=== PATIENT | female | born 1950 | race Caucasian/White ===

== ENCOUNTER → 2020-07-30 12:38 | Outpatient (CLI) | payer OTHER, SELFPAY ==
--- NOTE | 2020-07-30 12:43 | CT_ITS ---
STUDY: CT LEFT LOWER EXTREMITY REASON FOR EXAM: Female, 70 years old. Varus deformity, not elsewhere classified, left knee RADIATION DOSAGE (If Supplied By Facility): CTDIvol = ( 18.07 ) mGy, DLP = ( 993.98 ) mGycm. Individualized dose optimization techniques were used for this CT.? TECHNIQUE: Axial multidetector CT scan of the left lower extremity. Coronal and sagittal reformatted images. COMPARISON: None. FINDINGS: Left hip: Mild/moderate osteoarthritis predominating superiolaterally. Moderate pubic symphysis arthrosis. Mild sacroiliac joint arthrosis. Spurring at the greater trochanter. Calcified fibroid uterus. No acute fracture, dislocation or cortical destruction. Left ankle: Mild tibiotalar joint arthrosis with vacuum phenomenon. Plantar spur. Ankle mortise well aligned. Achilles enthesophyte. No acute fracture, dislocation or cortical destruction. Left knee: Moderate medial compartment osteoarthritis. Lateral compartment preserved. Moderate patellofemoral osteoarthritis. Normal proximal tibiofibular joint. Small volume joint effusion. Small popliteal cyst. Mild soft tissue swelling. No acute fracture, dislocation or cortical destruction. CT/Extremity Lower without Contra IMPRESSION: Moderate left knee osteoarthritis Mild left ankle osteoarthritis Mild/moderate left hip osteoarthritis Left knee small volume joint effusion, small popliteal cyst with mild swelling Electronically Signed: Shabbir Mendez DO at 8:12 EDT Tel , Service support ,
== END ==
PROVIDERS: PCP Student in an Organized Health Care Education/Training Program; Referring Provider Specialist; Visit Provider Specialist
DX: M21.162 Varus deformity, not elsewhere classified, left knee (principal)
CPT/HCPCS: 73700

== ENCOUNTER 2020-09-09 03:45 | Emergency (ER) | payer OTHER, SELFPAY ==
[2020-09-09 03:46] VITALS: BP 193/91; PULSE 82; RESP 16; TEMP 36.3; O2SAT 98; BMI 27.2
--- NOTE | 2020-09-09 03:58 | CT_ITS ---
HISTORY: mastoiditis TECHNIQUE: Multiple axial images were obtained of the brain without intravenous contrast. Coronal and sagittal reformats obtained. Bone algorithm axial images obtained. A radiation dose optimization technique was used for this scan. COMPARISON: None FINDINGS: # of images incl. paperwork: [id number] HEMORRHAGE: No evidence of acute intracranial hemorrhage. CEREBRAL PARENCHYMA: --Volume: Unremarkable for age. --White matter: Mild periventricular hypodense chronic small vessel white matter ischemic change. --Mass: No evidence of intracranial mass. --Stroke: Mendoza-white matter differentiation is preserved. VENTRICULAR SYSTEM: No hydrocephalus. MASS EFFECT: No midline shift or focal sulci effacement. Basal cisterns are preserved. SCALP: No large scalp hematoma. CALVARIUM/SKULL BASE: No fracture. PARANASAL SINUSES: Clear. MASTOID AIR CELLS: Clear. ORBITS: Imaged portions are unremarkable. VESSELS: Carotid and vertebral atherosclerosis. ASPECTS acute stroke score: 10 CT/Brain/Head without Contrast IMPRESSION: Mastoid air cells and middle ears are grossly clear. No evidence of mastoiditis. No CT evidence of acute intracranial hemorrhage or injury. Mild senescent changes. Individualized dose optimization techniques were used for this CT. at 0459 Reported and signed by: Rubin Saez MD Electronically Signed: Rubin Saez MD at 4:57 EDT Tel , Service support ,
[2020-09-09 04:04] VITALS: BP 166/80
[2020-09-09] MEDS: Ondansetron 4 MG/2 ML Vial IV (04:08)
[2020-09-09] MEDS: Morphine 4 MG/ML Syringe IV (04:10)
[2020-09-09 04:19] LABS: Absolute Lymphocyte Count 2.68 X10^3/uL (0.83-4.51); Absolute Neutrophil Count 3.6 X10^3/uL (2.0-7.7); Basophil# 0.06 X10^3/uL; Basophil% 0.8 % (0-1); Eosinophil# 0.66 X10^3/uL; Eosinophils% 8.6 % (0-5); Hematocrit 37.7 % (37-47); Hemoglobin 12.5 g/dL (12.0-15.0); Lymphocyte # 2.68 X10^3/ul (0.83-4.51); Lymphocyte % 34.8 % (19-41); Mean Corp Hgb Conc 33.2 g/dL (32-36); Mean Corpuscular Hgb 29.8 pg (27.0-32.0); Mean Corpuscular Volume 89.8 fL (81-99); Monocyte# 0.64 X10^3/uL; Monocyte% 8.3 % (0-10); NRBC Flagged by Analyzer 0 % (0-5); Neutrophil # 3.63 X10^3/uL (2.7-7.7); Platelet Count 245 K/mm3 (150-450); RBC Distribution Width CV 13.1 % (11.6-14.6); RBC Distribution Width SD 43.1 fl (35.1-43.9); White Blood Count 7.7 K/mm3 (4.4-11.0)
[2020-09-09 04:31] LABS: Anion Gap 10 (5-15); BUN 11 mg/dL (7-18); BUN/Creat Ratio 18.5 RATIO (10-20); Calcium,Total 9.1 mg/dL (8.5-10.1); Chloride 104 mmol/L (98-107); Creatinine, Serum 0.59 mg/dL (0.55-1.02); EST Glomerular Filtration Rate 107 mL/min (>60); Est Glom Filt Rate - Afr Amer 129 mL/min (>60); Estimated Creatinine Clearance 38.14 ml/min; Glucose 116 mg/dL (74-106); Sodium Level 140 mmol/L (136-145)
--- NOTE | 2020-09-09 04:52 | EDS_ITS ---
HPI History of Present Illness Chief Complaint: Other, Pain/Inj Detail of Chief Complaint: Pain behind left ear Informant: patient Onset/Context/Timing Onset: Days (6 days) Context: Gradual Onset Current Severity: Severe Maximum Severity: Severe Narrative Narrative: Patient presents secondary to pain to the left ear and posterior to the left ear. Patient states pain has been ongoing for the past 6 days. It was gradual in onset. She was hit the top of the head by a trunk lid in late August, several days before pain onset. She is unsure if this is related. Patient was seen by Dr. West this week. She states that some wax was cleared out of her ear and she was told to use Tylenol for pain. She states in spite of doing this her pain is worsened and she was not able to sleep tonight. She denies fever or chills. She reports her blood sugars have been under good control. Past medical history: Hypertension Diabetes [facility] Medical History (Updated 09/10/20 @ 23:[address] Lynda Patel MD) Diabetes Hypertension Home Medications Red Yeast Rice 1 capsule PO DAILY 06/04/15 [History Last Taken 06/04/15] aspirin 162 mg PO DAILY@0800 06/04/15 [History Last Taken 06/04/15] lisinopril 20 mg PO DAILY 06/04/15 [History Last Taken 06/04/15] metformin 1,000 mg PO BIDCM 06/04/15 [History Last Taken 06/04/15] sitagliptin [Januvia] 100 mg PO DAILY 06/04/15 [History Last Taken 06/04/15] clindamycin HCl 300 mg PO 4X/DAY #80 cap 09/09/20 [Rx Last Taken Unknown] Allergy/AdvReac Type Severity Reaction Status Date / Time No Known Allergies Allergy Verified 09/09/20 03:49 Social History Smoking Status: Never smoker ROS ROS ED Constitutional Constitutional ED: Denies chills or fever(s) Eyes Eyes: Denies change in vision ENT ENT ED: Reports ear pain left; Denies sore throat Cardiovascular Cardiovascular: Denies chest pain Respiratory/Chest Respiratory/Chest: Denies cough or dyspnea Gastrointestinal Gastrointestinal: Denies abdominal pain, diarrhea, nausea or vomiting Genitourinary Genitourinary ED: Denies dysuria Musculoskeletal Musculoskeletal: Denies back pain Integumentary Denies rash Neurologic Neurologic: Denies headache(s) or weakness Psychiatric Psychiatric: Denies anxiety or depression Endocrine Endocrinology: Denies polydipsia or polyuria Allergic/Immunologic Allergic/Immunologic ED: Denies urticaria EXAM Physical Exam Const Vital Signs: 09/09/20 03:46 09/09/20 03:49 09/09/20 04:04 Temperature 97.4 F L Temperature Source Temporal Pulse Rate 82 Respiratory Rate 16 Respiratory Effort Normal Respiratory Pattern Normal Blood Pressure 193/91 H 166/80 H Blood Pressure Mean 125 108 Pulse Ox 98 Oxygen Delivery Method Room Air Positive well nourished and well developed General Appearance ED: well developed HEENT Reports normocephalic, head/scalp atraumatic and TM's clear HEENT Narrative: Tenderness to palpation over the mastoid air cells on the left. No significant erythema or warmth. Tympanic Membrane ED: Yes TM's clear Eyes PERRL and EOMs intact bilaterally Neck supple Chest Wall inspection of chest normal and palpation of chest normal Resp normal respiratory effort and clear to auscultation bilaterally Cardio regular rate and regular rhythm GI normal to inspection, nondistended, normoactive bowel sounds Palpation: soft Back/Spine no CVA tenderness Extremity normal to inspection Neuro oriented x3 and no sensory deficits noted Sensorium / Orientation: alert Motor Exam: strength 5/5 throughout Psych mental status grossly normal Skin no rashes or lesions noted MDM MDM MDM Narrative Medical decision making narrative: Due to concern for mastoiditis labs and imaging studies are obtained. Lab Data Attestation: I reviewed the patient's lab results. Labs: Laboratory Results - last 24 hr 09/09/20 09/09/20 04:10 04:10 WBC 7.7 RBC 4.20 Hgb 12.5 Hct 37.7 MCV 89.8 MCH 29.8 MCHC 33.2 RDW Std Deviation 43.1 RDW Coeff of Colleen 13.1 Plt Count 245 MPV 10.0 Immature Gran % (Auto) 0.500 Neut % (Auto) 47.0 Lymph % (Auto) 34.8 [place] % (Auto) 8.3 Eos % (Auto) 8.6 H Baso % (Auto) 0.8 Absolute Neuts (auto) 3.6 Absolute Lymphs (auto) 2.68 Nucleated RBC % 0 Sodium 140 Potassium 4.0 Chloride 104 Carbon Dioxide 26.0 Anion Gap 10 BUN 11 Creatinine 0.59 Estim Creat Clear Calc 38.14 Est GFR (MDRD) Af Amer 129 Est GFR (MDRD) Non-Af 107 BUN/Creatinine Ratio 18.5 Glucose 116 H Calcium 9.1 Radiography Diagnostic Testing: Radiology Impression Brain CT 09/09/20 03:58 IMPRESSION: Mastoid air cells and middle ears are grossly clear. No evidence of mastoiditis. No CT evidence of acute intracranial hemorrhage or injury. Mild senescent changes. Individualized dose optimization techniques were used for this CT. at 0459 Reported and signed by: Rubin Saez MD Electronically Signed: Rubin Saez MD at 4:57 EDT Tel , Service support , Treatment and Re-Evaluation Comments:: Patient was given morphine and Zofran for pain control. On repeat evaluation she is resting more comfortably. Lab work is unremarkable. CT scan does not reveal evidence of mastoiditis or any other acute findings to explain her pain. Test results are discussed with her. She will be given a prescription for Watrous to help with pain. We discussed pros and cons of starting an antibiotic to prevent mastoiditis as she certainly has significant pain over the mastoid air cells. We will give her a course of clindamycin and patient will follow up with Dr. West this coming week. Discharge Plan Triage Chief Complaint: Other, Pain/Inj ED Provider: Lynda Patel Dx/Rx/DC Orders Clinical Impression: Otalgia of left ear Instructions: ED Earache Without Infection (Adult) Prescriptions: New clindamycin HCl 150 MG capsule 300 mg PO 4X/DAY Qty: 80 RF: 0 No Action lisinopril 20 MG tablet 20 mg PO DAILY RF: 0 metformin 1,000 MG tablet 1,000 mg PO BIDCM RF: 0 aspirin 81 MG tablet,chewable 162 mg PO DAILY@0800 RF: 0 sitagliptin [Januvia] 100 MG tablet 100 mg PO DAILY RF: 0 Red Yeast Rice 1 capsule PO DAILY RF: 0 Primary Care Provider: David Bai Referrals: David Bai DO [Primary Care Provider] - Robert Fernandez MD [STAFF PHYSICIAN] - As soon as possible Disposition Disposition: Home, Self Care Discharge Date/Time: 09/09/20 06:11
[2020-09-09 06:10] VITALS: RESP 16
== END 2020-09-09 06:11 | disposition home or self-care (01) ==
PROVIDERS: Emergency Provider Emergency Medicine; PCP Student in an Organized Health Care Education/Training Program
DX: H92.02 Otalgia, left ear (principal); I10 Essential (primary) hypertension; E11.9 Type 2 diabetes mellitus without complications; Z79.82 Long term (current) use of aspirin; Z79.84 Long term (current) use of oral hypoglycemic drugs
CPT/HCPCS: 70450; 80048; 85025; 96374; 96375; 99283; A4216; J2405

== ENCOUNTER → 2023-10-09 | Outpatient (CLI) | payer MEDICARE, SELFPAY ==
--- NOTE | 2023-10-09 19:00 | CT_ITS ---
EXAM: CT LEFT UPPER EXTREMITY WITHOUT INTRAVENOUS CONTRAST CLINICAL INDICATION: OSETEOARTHRITIS TECHNIQUE: Helically acquired images were obtained of the left upper extremity without intravenous contrast. 2-D reformats were performed by the technologist. This CT exam was performed using one or more of the following dose reduction techniques: automated exposure control, adjustment of the mA and/or kV according to patient size, and/or use of iterative reconstruction technique. COMPARISON: No relevant prior studies available. FINDINGS: BONES/JOINTS: There are degenerative changes in the partially visualized spine. Moderate acromioclavicular joint arthrosis and moderate sternoclavicular joint arthrosis. Ureteral marginal osteophytosis and glenoid osteophytosis with glenohumeral joint space narrowing as well as subcortical cystic change in the glenoid indicating moderate glenohumeral joint arthrosis. Small cystic change in the proximal humeral head at the rotator cuff insertions likely secondary to chronic rotator cuff pathology. No acute fracture. No subluxation. Normal alignment. SOFT TISSUES: Mild atrophy of the supraspinatus muscle. No soft tissue swelling or gas. No radiopaque foreign body. HEART: Coronary artery calcifications are present. CT/Extremity Upper without Contra IMPRESSION: 1. Moderate acromioclavicular joint arthrosis and moderate sternoclavicular joint arthrosis. 2. Moderate glenohumeral joint arthrosis. 3. Mild atrophy of the supraspinatus muscle. Evidence of chronic rotator cuff pathology. Electronically Signed: Alverto Soler DO at 21:48 EDT ,
== END | disposition home or self-care (01) ==
PROVIDERS: PCP Student in an Organized Health Care Education/Training Program; Referring Provider Physician Assistant Surgical; Visit Provider Physician Assistant Surgical
DX: M19.012 Primary osteoarthritis, left shoulder (principal)
CPT/HCPCS: 73200

== ENCOUNTER 2023-12-07 09:00 | Outpatient (CLI) | payer MEDICARE, SELFPAY ==
--- NOTE | 2023-12-08 14:09 | EKG12_ITS ---
Test Reason : PREOP Blood Pressure : / mmHG Vent. Rate : 074 BPM Atrial Rate : 074 BPM P-R Int : 140 ms QRS Dur : 114 ms QT Int : 416 ms P-R-T Axes : 054 -04 141 degrees QTc Int : 461 ms Normal sinus rhythm Incomplete left bundle branch block ST & T wave abnormality, consider lateral ischemia Abnormal ECG Confirmed by BIN SABA, AMNA ([id number]), tape editor PARAM OROSCO ([id number]) on 12/09/2023 10:56:46 AM Referred By: Jhon Orellana Confirmed By:AMNA STEWARD MD
[2023-12-08 15:24] LABS: Absolute Lymphocyte Count 2.61 X10^3/uL (0.83-4.51); Absolute Neutrophil Count 6.3 X10^3/uL (2.0-7.7); Basophil# 0.07 X10^3/uL; Basophil% 0.7 % (0-1); Eosinophil# 0.64 X10^3/uL; Eosinophils% 6.2 % (0-5); Hematocrit 39.8 % (37-47); Lymphocyte # 2.61 X10^3/ul (0.83-4.51); Lymphocyte % 25.2 % (19-41); Mean Corp Hgb Conc 32.7 g/dL (32-36); Mean Corpuscular Hgb 29.4 pg (27.0-32.0); Mean Platelet Vol. 10.3 fl (6.2-12.0); Monocyte# 0.65 X10^3/uL; Monocyte% 6.3 % (0-10); NRBC Flagged by Analyzer 0 % (0-5); Neutrophil # 6.32 X10^3/uL (2.7-7.7); Neutrophil % 61.1 % (47-70); Platelet Count 319 K/mm3 (150-450); RBC Distribution Width CV 13.2 % (11.6-14.6); RBC Distribution Width SD 43.7 fl (35.1-43.9); Red Blood Count 4.42 M/mm3 (4.2-5.4); White Blood Count 10.3 K/mm3 (4.4-11.0)
[2023-12-08 15:53] LABS: Magnesium 2.1 mg/dL (1.6-2.6)
[2023-12-08 16:01] LABS: Albumin, Serum 4.3 g/dL (3.2-5.0); Anion Gap 6 (5-15); BUN 11 mg/dL (7-18); BUN/Creat Ratio 17.4 RATIO (10-20); Calcium,Total 9.7 mg/dL (8.5-10.1); Chloride 107 mmol/L (98-107); Creatinine, Serum 0.63 mg/dL (0.55-1.02); EST Glomerular Filtration Rate 98 mL/min (>60); Est Glom Filt Rate - Afr Amer 119 mL/min (>60); Glucose 71 mg/dL (74-106); Potassium 4.2 mmol/L (3.5-5.1); Sodium Level 138 mmol/L (136-145)
[2023-12-08 16:05] LABS: Hemoglobin A1c 5.8 % (3.8-5.6)
== END 2023-12-07 23:00 | disposition home or self-care (01) ==
LOC: SDC 05-11 21:57
PROVIDERS: Anesthesiology; PCP Student in an Organized Health Care Education/Training Program; Referring Provider Student in an Organized Health Care Education/Training Program; Visit Provider Student in an Organized Health Care Education/Training Program
DX: Z01.818 Encounter for other preprocedural examination (principal); E11.9 Type 2 diabetes mellitus without complications; Z01.810 Encounter for preprocedural cardiovascular examination; Z79.84 Long term (current) use of oral hypoglycemic drugs; Z79.85 Long-term (current) use of injectable non-insulin antidiabetic drugs; I10 Essential (primary) hypertension; Z79.899 Other long term (current) drug therapy; I44.7 Left bundle-branch block, unspecified
CPT/HCPCS: 36415; 80048; 82040; 83036; 83735; 85025; 87081; 93005